=== PATIENT | male | born 1975 | race Caucasian/White ===

== ENCOUNTER 2019-08-24 12:12 | Inpatient (IN) | payer OTHER ==
[2019-08-24] MEDS ORDERED: Albuterol/Ipratropium 3.0-0.5 MG/3 ML Neb Soln NEB PRN (12:23)
[2019-08-24] MEDS ORDERED: Benzonatate 100 MG Cap PO PRN (12:31)
[2019-08-24] MEDS: Albuterol/Ipratropium 3.0-0.5 MG/3 ML Neb Soln NEB SCH ×3 (14:54→22:14)
[2019-08-24] MEDS: guaiFENesin/Dextromethorphan 100-10 MG/5 ML Soln 5 ML Cup PO SCH ×3 (15:01→23:47)
[2019-08-24] MEDS: cefTRIAXone 1 GM Vial IVPUSH SCH (15:06)
[2019-08-24] MEDS: methylPREDNISolone Sodium Succinate 125 MG/2 ML SDV IVPUSH SCH ×2 (15:13→22:08)
[2019-08-24] MEDS: Sodium Chloride 0.9% 1,000 ML IV SCH (15:19)
[2019-08-24] MEDS: Azithromycin 500 MG in Sodium Chloride 0.9% 250 ML IV SCH (15:21)
[2019-08-25] MEDS: guaiFENesin/Dextromethorphan 100-10 MG/5 ML Soln 5 ML Cup PO SCH ×3 (03:02→15:15)
[2019-08-25] MEDS: Albuterol/Ipratropium 3.0-0.5 MG/3 ML Neb Soln NEB SCH ×3 (05:51→17:23)
[2019-08-25] MEDS: Sodium Chloride 0.9% 1,000 ML IV SCH (05:57)
[2019-08-25 07:29] LABS: ANION GAP 19.9 mmol/L (5-15); CHLORIDE,CL 100 mmol/L (98-115); SODIUM,NA 141 mmol/L (136-145)
[2019-08-25] MEDS: methylPREDNISolone Sodium Succinate 125 MG/2 ML SDV IVPUSH SCH (08:23)
[2019-08-25] MEDS: cefTRIAXone 1 GM Vial IVPUSH SCH (12:12)
[2019-08-25] MEDS: Azithromycin 500 MG in Sodium Chloride 0.9% 250 ML IV SCH (12:48)
--- NOTE | 2019-08-26 17:56 | PCM.DCSUM1 ---
Discharge Summary - Hospital Course Diagnosis: Stroke: No - Discharge Data Discharge Date: 08/26/19 Discharge Disposition: Home, Self-Care 01 Condition: Good - Referral to Home Health Primary Care Physician: PCP None - Patient Summary/Data Consults: Consultations 08/24/19 12:23 Respiratory Care Assess and Treatment [CONS] Routine - Patient Instructions Diet: Drink 8-10+ Glasses/Day Activity: As Tolerated, Cough & Deep Breathe Driving: May Drive Today Showering/Bathing: May Shower Notify Provider of: Fever, Nausea and/or Vomiting Other/Special Instructions: --cough may extend beyond the infection for several weeks. --Very important you usually spirometer device every couple hours. -- Stay well-hydrated, avoid excessive cold air. --Encourage flu shot on clinic follow-up, and then yearly. --Cover cough - Discharge Plan *PRESCRIPTION DRUG MONITORING PROGRAM REVIEWED*: Not Applicable *COPY OF PRESCRIPTION DRUG MONITORING REPORT IN PATIENT DAVID: Not Applicable Prescriptions/Med Rec: Amoxicillin 1,000 mg PO TID #21 tablet Home Medications: Home Meds Amoxicillin 1,000 mg PO TID #21 tablet 08/25/19 [Rx] Forms: Return to Work/Inpatient [facility]ON Referrals: Ryan Lynn, [employer] [Nurse Practitioner] - (Thursday or , myself overall anybody of his choice) - Discharge Summary/Plan Comment DC Time >30 min.: No Discharge Summary/Plan Comment: Final diagnosis Pneumonia LLL, CAP, POA History summary 43-year-old gentleman was admitted into [facility] through [facility] for complications from pneumonia. Patient presented clinic with ongoing significant persistent/non-stop cough the patient had been having. Patient has had some recent travels however was complaining of productive cough, undocumented fevers and chills was concerned due to shortness of breath with very minimal activity Pertinent clinical findings/work-up White count 14.2 with neutrophilia 85%, X-ray left lower lobe pneumonia SPox low 92%, HR 120, sinus Negative pertussis Influenza A/B Hospital course Hospital course went Without complications, he was given dual antibiotics, duo nebs every 6 hours, sputum culture was obtained, he was quite tachycardic in the clinic this normalized. His cough was much improved overnight however still had productive cough on exam. Next morning his white count was down to 11 ,000 however neutrophilia 89%, sodium 141 potassium 4.2. T-max in the hospital 97.0. blood cultures no growth after 2 days. By next morning he was feeling much better and I gave him options of potential discharge later on since good support system, vital signs much improved, able tolerate oral medications, could return for any complications and close follow-up. Patient decided to be discharged. Medication additions/changes/adjustments upon discharge --Amoxicillin 1000 mg p.o. 3 times daily Discharge disposition Patient was discharged from [facility] much improvement in symptoms, follow- up appointment given --cough may extend beyond the infection for several weeks --Very important you use spirometer device every couple hours --Stay well-hydrated, avoid excessive cold air --Encourage flu shot on clinic follow-up, and then yearly --Cover cough - General Info Functional Status: Reports: Pain Controlled, Tolerating Diet, Ambulating, Urinating. Denies: New Symptoms - Review of Systems General: Denies: Fever, Weakness HEENT: Reports: No Symptoms Pulmonary: Reports: Cough, Sputum. Denies: Shortness of Breath Cardiovascular: Denies: Dyspnea on Exertion Gastrointestinal: Reports: No Symptoms Genitourinary: Reports: No Symptoms Musculoskeletal: Reports: Back Pain Skin: Denies: Dryness Neurological: Reports: No Symptoms - Patient Data Vitals - Most Recent: Last Vital Signs Temp 96.5 F L 08/25/19 15:00 Pulse 110 H 08/25/19 15:00 Resp 20 08/25/19 15:00 BP 149/83 H 08/25/19 15:00 Pulse Ox 94 L 08/25/19 15:00 Weight - Most Recent: 210 lb 6.4 oz ANASTACIO Results - Last 24 hrs: Microbiology 08/24/19 13:19 Aerobic Blood Culture - Preliminary Blood - Venous - Lab Draw NO GROWTH AFTER 2 DAYS Anaerobic Blood Culture - Preliminary NO GROWTH AFTER 2 DAYS 08/24/19 13:13 Aerobic Blood Culture - Preliminary Blood - Venous NO GROWTH AFTER 2 DAYS Anaerobic Blood Culture - Preliminary NO GROWTH AFTER 2 DAYS Med Orders - Current: Current Medications Discontinued Medications Albuterol/Ipratropium (Duoneb 3.0-0.5 Mg/3 Ml) 3 ml NEB Q6HRRT LUNA Last Admin: 08/25/19 17:23 Dose: Not Given Benzonatate (Tessalon Perles) 200 mg PO Q8H PRN PRN Reason: Cough Last Admin: 08/25/19 02:08 Dose: 200 mg Ceftriaxone Sodium (Rocephin) 1 gm IVPUSH Q24H [facility] Last Admin: 08/25/19 12:12 Dose: 1 gm Guaifenesin/Phenylephrine HCl (Robitussin Dm) 10 ml PO Q6H [facility] Last Admin: 08/24/19 23:47 Dose: Not Given Guaifenesin/Phenylephrine HCl (Robitussin Dm) 10 ml PO Q6H [facility] Last Admin: 08/25/19 15:15 Dose: 10 ml Sodium Chloride (Normal Saline) 1,000 mls @ 75 mls/hr IV ASDIRECTED [facility] Last Admin: 08/25/19 05:57 Dose: 75 mls/hr Azithromycin 500 mg/ Sodium (Chloride) 250 mls @ 250 mls/hr IV Q24H [facility] Last Admin: 08/25/19 12:48 Dose: 250 mls/hr Methylprednisolone Sodium Succinate (Solu-Medrol) 40 mg IVPUSH Q12H [facility] Last Admin: 08/25/19 08:23 Dose: 40 mg - Exam Quality Assessment: Denies: Supplemental Oxygen General: Reports: Alert, Oriented, Cooperative, No Acute Distress Neck: Reports: No JVD Lungs: Reports: Normal Respiratory Effort. Denies: Crackles, Rales, Rhonchi GI/Abdominal Exam: Soft Back Exam: Denies: CVA Tenderness (L), CVA Tenderness (R) Skin: Reports: Warm, Intact Psy/Mental Status: Reports: Alert, Normal Affect
== END 2019-08-25 17:28 | disposition home or self-care (01) | DRG 195 ==
LOC: KA.MS 12:12
PROVIDERS: ADMIT Physician Assistant; ATTEND Family Medicine
DX: J16.8 Pneumonia due to other specified infectious organisms (principal); Z79.899 Other long term (current) drug therapy
CPT/HCPCS: 36415; 80053; 85025; 87040; 94640; A9270-GY; J0456; J0696; J2930; J7030; J7050; J7620-GY